=== PATIENT | female | born 1945 | race Caucasian/White ===

== ENCOUNTER 2016-05-30 10:48 | Emergency (ER) | payer MEDICARE, OTHER ==
[2016-05-30] MEDS ORDERED: OXYMETAZOLINE HCL 0.05% 30 SPRAYS/BOT NS ONE (11:44)
[2016-05-30] MEDS ORDERED: ONDANSETRON 4 MG/2ML 2 ML VIAL ONE (11:44)
[2016-05-30] MEDS ORDERED: MAALOX/LIDO2%VISC/SIMETHICONE 40 ML BOT ONE (11:44)
[2016-05-30 12:05] LABS: ABSOLUTE NEUTROPHIL COUNT 7.2 K/mm3 (1.8-7.7); BASO % 0.4 % (0.2-1.0); EOS # 0.2 (0.0-0.5); HEMATOCRIT 43.3 % (37.0-47.0); HEMOGLOBIN 14.5 gm/l (12.0-16.0); IMM NEUT # 0.1 K/mm3 (0-0.2); IMM NEUT% 0.6 % (0-1); LYMPH # 1.8 (1.0-4.8); LYMPH % 17.3 % (15-45); MEAN CELL VOLUME 92.3 fl (81.0-99.0); MEAN CORPUSCULAR HEMOGLOBIN 30.9 pg (27.0-31.0); MEAN CORPUSCULAR HGB CONC 33.5 g/dl (33.0-37.0); MONO # 0.9 (0.0-0.8); MONO % 8.7 % (4-12); PLATELET COUNT 148 K/mm3 (130-400)
[2016-05-30 12:10] LABS: URINE BLOOD NEGATIVE (NEGATIVE); URINE GLUCOSE (UA) NEGATIVE (NEGATIVE); URINE LEUKOCYTE ESTERASE NEGATIVE (NEGATIVE); URINE NITRITE NEGATIVE (NEGATIVE); URINE PROTEIN NEGATIVE (NEGATIVE); URINE UROBILINOGEN NORMAL (0-1 mg/dl)
[2016-05-30 12:13] LABS: URINE APPEARANCE CLEAR; URINE BILIRUBIN NEGATIVE (NEGATIVE); URINE COLOR YELLOW
[2016-05-30 12:16] LABS: ALB/GLOB RATIO 1.2 (>1.0); ALBUMIN 3.8 gm/dL (3.5-5.7); CALCIUM 9.3 mg/dL (8.6-10.3)
--- NOTE | 2016-05-30 12:17 | RAD ---
05/30/2016 12:13 PM CHEST - 2 VIEWS History: Chest pain. Comparison: None Findings: Two views of the chest are obtained. The lungs are clear with out effusion or pneumothorax. The cardiomediastinal silhouette is unremarkable.. The osseous structures are intact.. IMPRESSION: No acute intrathoracic process.
[2016-05-30 13:08] LABS: TROPONIN I < 0.01 ng/ml (0.0-0.06)
[2016-05-30 13:14] LABS: CKMB ISOENZYME 1.6 ng/ml (0.6-6.3)
== END 2016-05-30 13:34 | disposition home or self-care (01) ==
LOC: ED 10:48
DX: K85.90 Acute pancreatitis without necrosis or infection, unspecified (principal); R10.13 Epigastric pain; E78.00 Pure hypercholesterolemia, unspecified; I10 Essential (primary) hypertension
CPT/HCPCS: 83690; 82150; 85025; 82550; 82553; 80053; 81003; 84484; 71020; 99284 ×2; 96374; 93005; A9270 ×2; J2405